=== PATIENT | male | born 1990 | race Caucasian/White ===

== ENCOUNTER 2021-05-19 01:12 | Emergency (ER) | payer MEDICAID ==
[~2021-05-19] VITALS: Ht 190.5 cm; Wt 136.1 kg
[~2021-05-19 01:12] MED LIST: CARAFATE 1 GM TA1 G1 PO; HYDROCODONE-AP1 EAC6 PO; NORCO 5-325 TA1 EACH PO; PRILOSEC 20 MG20 MG PO
[2021-05-19 06:36] VITALS: BP 122/56
== END 2021-05-19 06:37 | disposition home or self-care (01) ==
LOC: M.ERS 01:12
DX: F16.90 Hallucinogen use, unspecified, uncomplicated (principal); Z87.891 Personal history of nicotine dependence